=== PATIENT | female | born 1985 | race Two or more races ===

== ENCOUNTER → 2020-07-17 | Outpatient (CLI) | payer OTHER | END | disposition home or self-care (01) | LOC: OFIC 805 14:00 | PROVIDERS: ATTEND Otolaryngology | DX: K21.9 Gastro-esophageal reflux disease without esophagitis (principal); M54.2 Cervicalgia; E04.1 Nontoxic single thyroid nodule ==

== ENCOUNTER 2020-07-31 15:26 | Outpatient (CLI) | payer OTHER | END 2020-08-02 08:36 | disposition home or self-care (01) | LOC: OFIC 805 15:26 | PROVIDERS: ATTEND Otolaryngology | DX: K21.9 Gastro-esophageal reflux disease without esophagitis (principal); M62.838 Other muscle spasm; R22.1 Localized swelling, mass and lump, neck ==

== ENCOUNTER 2021-03-24 06:02 | Day surgery (SDC) | payer OTHER | END 2021-03-24 11:10 | disposition home or self-care (01) | LOC: CIR.AMB 06:02 | PROVIDERS: ATTEND Otolaryngology | DX: J35.01 Chronic tonsillitis (principal) ==